=== PATIENT | male | born 1995 | race Caucasian/White ===

== ENCOUNTER 2016-10-20 22:25 | Emergency (ER) | payer OTHER ==
[2016-10-20 22:30] VITALS: TEMP 98.2
--- NOTE | 2016-10-21 | EDPHY ---
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 Catch it and the glass broke sustaining a laceration to his volar right wrist. Patient denies any other injuries. No numbness or tingling. He is up-to-date in his tetanus. ROS: 10 point Review of Systems is negative except as noted in the HPI. Exam: General: Awake, alert, no acute distress Right arm: There is a 2 cm laceration over the right volar ulnar wrist running parallel to the ulnar artery. There is into the subcutaneous only there is no deep tissue involvement. There is no tendon involvement. No vascular involvement. He has full flexion extension of his wrist. Sensations intact in the radial median ulnar nerve distribution. Cap refills less than 2 seconds. He has 2+ radial and ulnar pulses. Skin: No rash - Personal History Current Tetanus/Diphtheria Vaccine: Yes Current Tetanus Diphtheria and Acellular Pertussis (TDAP): Yes - Medical/Surgical History Hx Asthma: No Hx Chronic Respiratory Disease: No Hx Diabetes: No Hx Cardiac Disease: No Hx Renal Disease: No Hx Cirrhosis: No Hx Alcoholism: No Hx HIV/AIDS: No Hx Splenectomy or Spleen Trauma: No Other PMH: denies - Social History Smoking Status: Never smoked Constitutional: Initial Vital Signs Temperature (C) 36.8 C 10/20/16 22:27 Heart Rate 70 10/20/16 22:27 Respiratory Rate 16 10/20/16 22:27 Blood Pressure 114/59 L 10/20/16 22:27 O2 Sat (%) 95 10/20/16 22:27 O2 Delivery Mode Room Air Allergies/Adverse Reactions: No Known Allergies Allergy (Unverified 10/20/16 22:30) Home Medications: Medication Instructions Recorded [place] 10/20/16 Medical Decision Making Procedures: Procedure: Laceration repair. Verbal consent was obtained from the patient. The 2 cm laceration on the right wrist was anesthetized in the usual fashion. The wound was irrigated, draped and explored to its base with a gloved finger. There were no deep structures involved. No tendon injury was identified. The wound was repaired with 5, 4-0 Ethilon simple interrupted sutures. The wound repair was uncomplicated. The procedure was performed by myself. Departure - Departure Disposition: Home, Routine, Self-Care Clinical Impression: Laceration Condition: Good Instructions: Laceration (ED) Additional Instructions: Sutures need to be removed in 10 days. Return to the emergency depart for increasing redness, pus from the wound, fevers, chills, streaking up the arm, or any other concerns. Referrals: NONE *PRIMARY CARE P,. [Primary Care Provider] - As per Instructions Work Comp Referral [facility] [Outside] - As per Instructions
[2016-10-21 00:14] VITALS: BP 116/60; PULSE 72; RESP 18; O2SAT 98
== END 2016-10-21 00:13 | disposition home or self-care (01) ==
PROC: 0HQDXZZ Repair Right Lower Arm Skin, External Approach (ICD-10-PCS; principal; 2016-10-20)
DX: S61.511A Laceration without foreign body of right wrist, initial encounter (principal); W25.XXXA Contact with sharp glass, initial encounter